=== PATIENT | male | born 1970 | race Caucasian/White ===

== ENCOUNTER 2019-07-19 10:17 | Emergency (ER) | payer BC, OTHER ==
[~2019-07-19] VITALS: Ht 182.9 cm; Wt 86.2 kg
--- NOTE | 2019-07-19 10:25 | NUR ---
PT BIB SELF C/O NAUSEA AND VOMITING SINCE THIS MORNING. PT IS AAOX4, NOT IN RESPIRATORY DISTRESS, V/S STABLE, KEPT RESTED AND COMFORTABLE, WILL CONTINUE TO MONITOR.
--- NOTE | 2019-07-19 10:30 | NUR ---
AT BEDSIDE FOR EVAL.
[2019-07-19] MEDS ORDERED: ONDANSETRON HCL/PF 4 MG/2 ML VIAL ONE (10:36)
[2019-07-19] MEDS ORDERED: diphenhydrAMINE HCL 50 MG/ML VIAL ONE (10:36)
--- NOTE | 2019-07-19 10:40 | NUR ---
IV LINE ESTABLISHED BLOOD DRAWN AND SENT TO LAB.
[2019-07-19 10:44] LABS: BASOPHILS % (AUTO) 0.2 % (0.0-2.0); EOSINOPHILS % (AUTO) 1.2 % (0.0-6.0); HEMATOCRIT 45 % (39-51); HEMOGLOBIN 15.3 g/dL (13.5-17.5); LYMPHOCYTES # (AUTO) 0.9 /CMM (0.8-4.8); LYMPHOCYTES % (AUTO) 9.8 % (20.0-44.0); MEAN CORPUSCULAR HGB CONC 34 g/dl (31.0-36.0); MEAN CORPUSCULAR VOLUME 92 fL (80-96); MONOCYTES # (AUTO) 0.4 /CMM (0.1-1.30); MONOCYTES % (AUTO) 4.8 % (2.0-12.0); NEUTROPHILS # (AUTO) 7.4 /CMM (1.8-8.9); PLATELET COUNT (AUTO) 244 /CMM (150-450); RED BLOOD CELL COUNT(AUTO) 4.95 MIL/uL (4.5-6.0); WHITE BLOOD COUNT (AUTO) 8.9 K/uL (4.3-11.0)
[2019-07-19 10:51] LABS: CALCIUM, SERUM 9.2 mg/dL (8.5-10.1); CREATININE 1.1 mg/dL (0.6-1.3); POTASSIUM 4.4 mmol/L (3.5-5.1)
[2019-07-19 10:57] LABS: BILIRUBIN,DIRECT 0.1 mg/dL (0.0-0.2); BILIRUBIN,TOTAL 0.4 mg/dL (0.2-1.0); TOTAL PROTEIN, SERUM 7.5 g/dL (6.4-8.2)
[2019-07-19] MEDS ORDERED: ONDANSETRON HCL/PF 4 MG/2 ML VIAL IVP ONE (11:00)
[2019-07-19] MEDS ORDERED: diphenhydrAMINE HCL 50 MG/ML VIAL IV ONE (11:00)
[2019-07-19] MEDS ORDERED: IV NS 0.9% 1,000 ML BAG IV ONE (11:00)
--- NOTE | 2019-07-19 11:15 | NUR ---
PT IS WHEELED TO CT SCAN [facility]IA [facility].
--- NOTE | 2019-07-19 12:15 | NUR ---
IV removed. Catheter intact and site benign. Pressure and 4x4 applied to site. No bleeding noted. Patient discharged to home in stable condition. Written and verbal after care instructions given. Patient verbalizes understanding of instruction.
[2019-07-19 12:16] VITALS: BP 114/77
== END 2019-07-19 12:25 | disposition home or self-care (01) ==
LOC: ER 10:22
DX: R42 Dizziness and giddiness (principal); E86.0 Dehydration
CPT/HCPCS: 36415; 70450; 71045; 80048; 80076; 85025; 96361; 96374; 96375; 99285; J1200; J2405; J7030

== ENCOUNTER 2023-11-25 10:45 | Inpatient (IN) | payer OTHER, BC ==
[~2023-11-25] VITALS: Ht 182.9 cm; Wt 99.5 kg
[2023-11-25 12:10] LABS: APPEARANCE,URINE CLEAR (CLEAR); BILIRUBIN,URINE NEGATIVE (NEGATIVE); BLOOD, URINE TRACE-INTA Ery/uL (NEGATIVE); COLOR,URINE DARK YELLOW (YELLOW); KETONES,URINE NEGATIVE (NEGATIVE); LEUKOCYTE ESTERASE ,URINE NEGATIVE (NEGATIVE); NITRITE, URINE NEGATIVE (NEGATIVE); PROTEIN,URINE TRACE mg/dl (NEGATIVE); UGLUCOSE NEGATIVE (NEGATIVE); UROBILINOGEN,URINE 0.2 EU/dL (0.2)
[2023-11-25 12:31] LABS: ADD URINE CULTURE NO; BACTERIA,URINE Few /HPF (None Seen); MUCUS,URINE Few /LPF (None Seen); SQUAMOUS EPITHELIAL CELL,UR 0-2 /HPF (None Seen); WBC,URINE 0-2 /HPF (0-3)
[2023-11-25 12:31] LABS: BASOPHILS # (AUTO) 0.1 K/uL (0.0-0.2); BASOPHILS % (AUTO) 0.4 % (0.0-2.0); EOSINOPHILS % (AUTO) 0.2 % (0.0-6.0); HEMATOCRIT 48 % (39-51); LYMPHOCYTES # (AUTO) 0.9 K/uL (0.8-4.8); LYMPHOCYTES % (AUTO) 6.2 % (20.0-44.0); MEAN CORPUSCULAR HEMOGLOBIN 31 PG (26.0-33.0); MEAN CORPUSCULAR HGB CONC 34 g/dl (31.0-36.0); MEAN CORPUSCULAR VOLUME 91 fL (80-96); MONOCYTES # (AUTO) 1.2 K/uL (0.1-1.30); MONOCYTES % (AUTO) 8.8 % (2.0-12.0); NEUTROPHILS # (AUTO) 11.7 K/uL (1.8-8.9); NEUTROPHILS % (AUTO) 84.4 % (43.0-81.0); PLATELET COUNT (AUTO) 278 K/uL (150-450); RED BLOOD CELL COUNT(AUTO) 5.22 MIL/uL (4.5-6.0); RED CELL DISTRIBUTION WIDTH 13.3 % (11.5-15.0); WHITE BLOOD COUNT (AUTO) 13.8 K/uL (4.3-11.0)
[2023-11-25 12:46] LABS: ALBUMIN 3.7 g/dL (3.4-5.0); BILIRUBIN,DIRECT 0.3 mg/dL (0.0-0.2); BILIRUBIN,TOTAL 1.3 mg/dL (0.2-1.0); CALCIUM, SERUM 9.3 mg/dL (8.5-10.1); CREATININE 0.9 mg/dL (0.6-1.3); POTASSIUM 4.2 mmol/L (3.5-5.1); TOTAL PROTEIN, SERUM 7.6 g/dL (6.4-8.2)
[2023-11-25] MEDS ORDERED: PIPERACI/TAZO 3.375GM/D5W 50ML PB IV ONE (12:52)
[2023-11-25] MEDS: PIPERACILLIN /TAZOBACTAM 3.375 G in IV D5W 50 ML IV ONE (13:00)
[2023-11-25] MEDS: IV NS 0.9% 1,000 ML BAG IV ONE (13:00)
[2023-11-25] MEDS ORDERED: ONDANSETRON HCL/PF 4 MG/2 ML VIAL IVP PRN (14:00)
[2023-11-25] MEDS: IV NS 0.9% 1,000 ML IV PRN (15:16)
[2023-11-25 16:39] VITALS: BP 140/70; TEMP 98.3; O2SAT 99
[2023-11-25 16:41] VITALS: BP 127/75; TEMP 97.3; O2SAT 96
[2023-11-25] MEDS: KETOROLAC TROMETHAMINE 15 MG/ML VIAL IV PRN (16:47)
[2023-11-25] MEDS: PIPERACILLIN /TAZOBACTAM 3.375 G in IV D5W 100 ML IV SCH (17:02)
[2023-11-25] MEDS ORDERED: PIPERACILLIN /TAZOBACTAM 4.5 G in IV D5W 50 ML IV SCH (18:00)
[2023-11-25] MEDS ORDERED: FENTANYL PF 250MCG/5ML AMPUL ONE (20:11)
[2023-11-25] MEDS ORDERED: MIDAZOLAM HCL 2 MG/2ML VIAL ONE (20:11)
[2023-11-25 20:21] VITALS: BP 116/78; TEMP 97.5; O2SAT 95
[2023-11-25] MEDS ORDERED: LIDOCAINE 1%-EPI 1:100,000 20 ML VIAL ONE (20:24)
[2023-11-25] MEDS ORDERED: BACITRACIN ZINC OINT (15 GM) 15 GM TUBE TP ONE (20:24)
[2023-11-25] MEDS ORDERED: BUPIVACAINE 0.5 % PF 150 MG/30 ML VIAL ONE (20:24)
[2023-11-25] MEDS ORDERED: GLYCOPYRROLATE 0.2 MG/ML VIAL ONE (22:26)
[2023-11-25 23:30] VITALS: BP 114/77; TEMP 97.5; O2SAT 96
[2023-11-26] MEDS ORDERED: PIPERACILLIN /TAZOBACTAM 3.375 G in IV D5W 50 ML IV SCH
[2023-11-26] MEDS ORDERED: PIPERACILLIN /TAZOBACTAM 3.375 G in IV D5W 100 ML IV SCH (00:10)
[2023-11-26] MEDS: IV LR 1000 ML 1,000 ML IV PRN (00:25)
[2023-11-26] MEDS: CELECOXIB 100 MG CAPSULE PO SCH ×2 (01:02→12:04)
[2023-11-26] MEDS: ACETAMINOPHEN 325 MG TABLET PO SCH ×2 (01:02→08:14)
[2023-11-26] MEDS: GABAPENTIN 100 MG CAPSULE PO SCH (01:02)
[2023-11-26] MEDS: PIPERACILLIN /TAZOBACTAM 3.375 G in IV D5W 100 ML IV SCH ×2 (01:26→11:00)
[2023-11-26 07:39] LABS: BASOPHILS % (AUTO) 0.2 % (0.0-2.0); EOSINOPHILS % (AUTO) 0.2 % (0.0-6.0); HEMATOCRIT 41 % (39-51); HEMOGLOBIN 13.5 g/dL (13.5-17.5); LYMPHOCYTES # (AUTO) 0.8 K/uL (0.8-4.8); LYMPHOCYTES % (AUTO) 6.6 % (20.0-44.0); MEAN CORPUSCULAR HEMOGLOBIN 30 PG (26.0-33.0); MEAN CORPUSCULAR HGB CONC 33 g/dl (31.0-36.0); MEAN CORPUSCULAR VOLUME 90 fL (80-96); MONOCYTES # (AUTO) 0.9 K/uL (0.1-1.30); MONOCYTES % (AUTO) 7.3 % (2.0-12.0); NEUTROPHILS # (AUTO) 10.3 K/uL (1.8-8.9); NEUTROPHILS % (AUTO) 85.7 % (43.0-81.0); PLATELET COUNT (AUTO) 245 K/uL (150-450); RED BLOOD CELL COUNT(AUTO) 4.57 MIL/uL (4.5-6.0); RED CELL DISTRIBUTION WIDTH 13.6 % (11.5-15.0)
[2023-11-26 07:58] LABS: CALCIUM, SERUM 8.1 mg/dL (8.5-10.1); CREATININE 0.9 mg/dL (0.6-1.3); MAGNESIUM 1.7 mg/dL (1.8-2.4); PHOSPHORUS 3.2 mg/dL (2.5-4.9); POTASSIUM 3.9 mmol/L (3.5-5.1)
[2023-11-26] MEDS: PANTOPRAZOLE 40 MG VIAL IV SCH (08:14)
[2023-11-26 08:15] VITALS: BP 111/77; TEMP 99; O2SAT 95
[2023-11-26] MEDS: MAGNESIUM OXIDE 400 MG TABLET PO ONE (09:42)
[2023-11-26] MEDS ORDERED: CIPR500T5 PO (12:20)
[2023-11-26] MEDS ORDERED: METR500T PO (12:21)
== END 2023-11-26 16:49 | disposition home or self-care (01) | DRG 337 ==
LOC: ER 10:51 → MED 14:15
PROC: 0DTJ4ZZ Resection of Appendix, Percutaneous Endoscopic Approach (ICD-10-PCS; principal; 2023-11-25)
PROC: 0DN84ZZ Release Small Intestine, Percutaneous Endoscopic Approach (ICD-10-PCS; 2023-11-25)
DX: K35.80 Unspecified acute appendicitis (principal); K66.0 Peritoneal adhesions (postprocedural) (postinfection); R00.0 Tachycardia, unspecified
CPT/HCPCS: 36415; 80048-TC; 80076-TC; 81001; 83690-TC; 83735-TC; 84100-TC; 85025-TC; A4223; G0378; J0330; J0690; J1885; J2250; J2405; J2470; J2543; J2704; J2765; J3010; J3490; J7030; J7060; J7120